=== PATIENT | female | born 1955 | race African-American/Black ===

== ENCOUNTER 2020-06-04 07:50 | Inpatient (IN) | payer MEDICAID ==
[~2020-06-04] VITALS: Ht 165.1 cm; Wt 51.3 kg
[~2020-06-04 07:50] MED LIST: BACL10TA PO; CARI-277 PO; DICLTAB53 PO; GABA300C10 PO; HYDR-4072 PO; MORP1TAB14 PO; NAP500T PO; SPIR25TA8 PO; WARF1TAB36 PO; WARF5TAB71 PO
[2020-06-04 09:37] LABS: Basophils # (auto) 0 10 ^3/uL (0-0.2); Eosinophils # (auto) 0 10 ^3/uL (0-0.8); Eosinophils % (auto) 0.6 % (0.0-7.0); Nucleated Red Blood Cells % 0.1 %; White Blood Cell 6.6 10^3/uL (4.4-10.8)
[2020-06-04 09:39] LABS: Basophils % (auto) 0.2 % (0.0-2.0); Hematocrit 30.7 % (36.0-46.0); Hemoglobin 9.5 g/dL (12.2-16.2); Lymphocytes # (auto) 1.1 10 ^3/uL (0.4-5.4); Lymphocytes % (auto) 16.9 % (10.0-50.0); Mean Corpuscular Hemoglobin 30.1 pg (28.0-32.0); Mean Corpuscular Volume 97.2 fL (80.0-100.0); Monocytes # (auto) 0.2 10 ^3/uL (0-1.3); Monocytes % (auto) 3.6 % (0.0-12.0); Neutrophils # (auto) 5.2 10 ^3/uL (1.6-8.6); Neutrophils % (auto) 78.7 % (37.0-80.0); Platelet Count (auto) 229 10^3/uL (140-450); Red Blood Cells 3.15 10^6/uL (4.0-5.20); Red Cell Distribution Width 16.7 % (11.8-14.3)
[2020-06-04 09:57] LABS: Alanine Aminotransferase 14 U/L (13-56); Anion Gap 5 (5-15); Aspartate Aminotransferase 19 U/L (15-37); BUN/Creatinine Ratio 12.1; Blood Alcohol < 3.0 mg/dL (0-5); Blood Urea Nitrogen 21 mg/dL (7-18); Calcium 8.6 mg/dL (8.5-10.1); Carbon Dioxide 24 mmol/L (21-32); Chloride 107 mmol/L (98-107); GFR African American 38 mL/min; GFR Non-African American 32 mL/min; Glucose 94 mg/dL (74-106); Potassium 4.8 mmol/L (3.5-5.1); Salicylate 3.8 mg/dL (2.8-20.0); Sodium 136 mmol/L (136-145)
[2020-06-04 09:59] LABS: Acetaminophen < 2.0 ug/mL (10-30)
[2020-06-04 10:02] LABS: Alkaline Phosphatase 161 U/L (45-117); Bilirubin, Total 0.3 mg/dL (0.2-1.0); Total Protein 7.3 g/dL (6.4-8.2)
[2020-06-04 10:48] LABS: Urine Bacteria FEW /hpf (None Seen); Urine Blood 1+ /uL (Negative); Urine Mucus FEW (None Seen); Urine Specific Gravity 1.016 (1.001-1.035); Urine WBC 23 /hpf (0 - 5)
[2020-06-04 11:14] LABS: Alcohol, Urine < 3.0 mg/dL (0-10); Amphetamine Screen, Urine NEGATIVE (NEGATIVE); Barbiturate Scree,Urine NEGATIVE (NEGATIVE); Benzodiazephine Screen, Urine NEGATIVE (NEGATIVE); Cannabinoid Screen, Urine NEGATIVE (NEGATIVE); Cocaine Screen, Urine NEGATIVE (NEGATIVE); Opiate Scree,Urine POSITIVE (NEGATIVE); Phencyclidine Screen, Urine NEGATIVE (NEGATIVE)
[2020-06-04] MEDS ORDERED: MORPHINE SULF INJ 2 MG/ML SYRINGE 1ML IV PRN (11:45)
[2020-06-04] MEDS ORDERED: SODIUM CHLORIDE 0.9% 1,000 ML IV ONE (11:45)
[2020-06-04] MEDS ORDERED: NITROGLYCERIN 0.4 MG SL TAB SL PRN (11:45)
[2020-06-04] MEDS ORDERED: FUROSEMIDE 40 MG TAB PO ONE (11:45)
[2020-06-04] MEDS ORDERED: NALOXONE HCL 0.4 MG/ML VIAL IV ONE (11:45)
[2020-06-04] MEDS ORDERED: GABAPENTIN 300 MG CAP PO SCH (12:00)
[2020-06-04] MEDS: PANTOPRAZOLE 40 MG/10 ML VIAL INJ IV SCH (14:30)
[2020-06-04] MEDS: cefTRIAXone 1GM/50ML D5W 50 ML IV SCH (14:45)
[2020-06-04] MEDS: RIVAROXABAN 20 MG TAB PO SCH (19:00)
[2020-06-04] MEDS ORDERED: SPIR50TA5 PO (19:32)
[2020-06-04] MEDS ORDERED: RIVA20TA PO (19:34)
[2020-06-04] MEDS ORDERED: MORP30TA5 PO (19:38)
[2020-06-04] MEDS ORDERED: GABA400C11 PO (19:41)
[2020-06-04] MEDS: GABAPENTIN 300 MG CAP PO SCH (21:46)
[2020-06-05] VITALS (8 sets, daily range): BP systolic 120–146; BP diastolic 54–75
[2020-06-05] MEDS ORDERED: PNEUMOCOCCAL VACC POLYS 25 MCG/0.5 ML VIAL IM ONE (00:45)
[2020-06-05] MEDS ORDERED: INFLUENZA QUAD 2020-2021 0.5 ML SYRG IM ONE (00:45)
[2020-06-05] MEDS: GABAPENTIN 300 MG CAP PO SCH ×2 (05:44→14:59)
[2020-06-05] MEDS: cefTRIAXone 1GM/50ML D5W 50 ML IV SCH (08:20)
[2020-06-05] MEDS: PANTOPRAZOLE 40 MG/10 ML VIAL INJ IV SCH (09:12)
[2020-06-05] MEDS: HYDROcodone-ACET 5/325MG TAB PO PRN ×2 (09:12→17:30)
[2020-06-05] MEDS ORDERED: SPIRONOLACTONE 25 MG TAB PO SCH (10:00)
[2020-06-05 10:25] LABS: Basophils # (auto) 0 10 ^3/uL (0-0.2); Basophils % (auto) 0.6 % (0.0-2.0); Eosinophils # (auto) 0 10 ^3/uL (0-0.8); Eosinophils % (auto) 0.3 % (0.0-7.0); Hematocrit 31.1 % (36.0-46.0); Hemoglobin 9.8 g/dL (12.2-16.2); Lymphocytes # (auto) 1.1 10 ^3/uL (0.4-5.4); Lymphocytes % (auto) 23.5 % (10.0-50.0); Mean Corpuscular Hemoglobin 30.4 pg (28.0-32.0); Mean Corpuscular Hgb Conc. 31.4 g/dL (32.0-36.0); Mean Corpuscular Volume 96.5 fL (80.0-100.0); Monocytes # (auto) 0.3 10 ^3/uL (0-1.3); Monocytes % (auto) 5.8 % (0.0-12.0); Neutrophils # (auto) 3.3 10 ^3/uL (1.6-8.6); Neutrophils % (auto) 69.8 % (37.0-80.0); Platelet Count (auto) 247 10^3/uL (140-450); Red Blood Cells 3.22 10^6/uL (4.0-5.20); Red Cell Distribution Width 16.5 % (11.8-14.3); White Blood Cell 4.8 10^3/uL (4.4-10.8)
[2020-06-05 10:43] LABS: BUN/Creatinine Ratio 15.1; Calcium 8.8 mg/dL (8.5-10.1); Potassium 4.4 mmol/L (3.5-5.1)
[2020-06-05] MEDS: RIVAROXABAN 20 MG TAB PO SCH (18:00)
== END 2020-06-05 19:25 | disposition home or self-care (01) | DRG 812 ==
LOC: EDBD 07:50 → ER 07:50 → TELE 07:51 → TELE-WESTW 23:17
PROVIDERS: ADMIT Nurse Practitioner Acute Care; ATTEND Internal Medicine
DX: T39.1X1A Poisoning by 4-Aminophenol derivatives, accidental (unintentional), initial encounter (principal); T39.311A Poisoning by propionic acid derivatives, accidental (unintentional), initial encounter; T42.6X1A Poisoning by other antiepileptic and sedative-hypnotic drugs, accidental (unintentional), initial encounter; N17.0 Acute kidney failure with tubular necrosis; N18.30 Chronic kidney disease, stage 3 unspecified; Z68.1 Body mass index [BMI] 19.9 or less, adult; D64.9 Anemia, unspecified; G62.9 Polyneuropathy, unspecified; G89.29 Other chronic pain; G92 Toxic encephalopathy; M54.5 Low back pain; I13.0 Hypertensive heart and chronic kidney disease with heart failure and stage 1 through stage 4 chronic kidney disease, or unspecified chronic kidney disease; I50.9 Heart failure, unspecified; Z86.711 Personal history of pulmonary embolism; Z23 Encounter for immunization; Z86.718 Personal history of other venous thrombosis and embolism; Z79.01 Long term (current) use of anticoagulants; Z79.899 Other long term (current) drug therapy; Y92.89 Other specified places as the place of occurrence of the external cause; Z79.891 Long term (current) use of opiate analgesic; E44.1 Mild protein-calorie malnutrition; I70.0 Atherosclerosis of aorta
CPT/HCPCS: 36415; 70450; 71045; 74176; 80048; 80053; 80307; 80320; 80329; 81001; 84484; 85025; 87086; 93005; 96361; 96365; 96366; 96375; 99291; C9113; G0378; J0696

== ENCOUNTER 2020-06-07 15:50 | Inpatient (IN) | payer MEDICAID ==
[~2020-06-07] VITALS: Ht 165.1 cm; Wt 56.3 kg
[~2020-06-07 15:50] MED LIST changes: -CARI-277 PO; -DICLTAB53 PO; -GABA300C10 PO; +GABA400C11 PO; -MORP1TAB14 PO; +MORP30TA5 PO; +RIVA20TA PO; -SPIR25TA8 PO; +SPIR50TA5 PO; -WARF1TAB36 PO; -WARF5TAB71 PO
[2020-06-07 17:01] LABS: Basophils # (auto) 0.1 10 ^3/uL (0-0.2); Eosinophils # (auto) 0 10 ^3/uL (0-0.8); Hemoglobin 8.9 g/dL (12.2-16.2); Lymphocytes # (auto) 1.2 10 ^3/uL (0.4-5.4)
[2020-06-07 17:04] LABS: Basophils % (auto) 1.1 % (0.0-2.0); Eosinophils % (auto) 0.6 % (0.0-7.0); Hematocrit 28.9 % (36.0-46.0); Lymphocytes % (auto) 17.5 % (10.0-50.0); Mean Corpuscular Hemoglobin 29.7 pg (28.0-32.0); Mean Corpuscular Hgb Conc. 30.7 g/dL (32.0-36.0); Mean Corpuscular Volume 96.9 fL (80.0-100.0); Monocytes # (auto) 0.4 10 ^3/uL (0-1.3); Monocytes % (auto) 5.4 % (0.0-12.0); Neutrophils # (auto) 4.9 10 ^3/uL (1.6-8.6); Neutrophils % (auto) 75.4 % (37.0-80.0); Nucleated Red Blood Cells % 0.1 %; Platelet Count (auto) 227 10^3/uL (140-450); Red Blood Cells 2.98 10^6/uL (4.0-5.20); Red Cell Distribution Width 16.3 % (11.8-14.3); White Blood Cell 6.6 10^3/uL (4.4-10.8)
[2020-06-07] MEDS ORDERED: SODIUM CHLORIDE 0.9% 1,000 ML IV ONE ×2 (17:15)
[2020-06-07] MEDS ORDERED: NALOXONE HCL 1MG/ML 2ML SYRINGE IV ONE (17:15)
[2020-06-07 17:22] LABS: Acetaminophen < 2.0 ug/mL (10-30); Salicylate 3.7 mg/dL (2.8-20.0)
[2020-06-07 17:23] LABS: Alanine Aminotransferase 13 U/L (13-56); Albumin 2.8 g/dL (3.4-5.0); Anion Gap 4 (5-15); Aspartate Aminotransferase 20 U/L (15-37); BUN/Creatinine Ratio 10.6; Blood Alcohol < 3.0 mg/dL (0-5); Blood Urea Nitrogen 21 mg/dL (7-18); Calcium 8.1 mg/dL (8.5-10.1); Carbon Dioxide 26 mmol/L (21-32); Chloride 105 mmol/L (98-107); GFR African American 33 mL/min; GFR Non-African American 27 mL/min; Glucose 93 mg/dL (74-106); Magnesium 1.8 mg/dL (1.6-2.6); Potassium 4.5 mmol/L (3.5-5.1); Sodium 135 mmol/L (136-145)
[2020-06-07 17:25] LABS: Alkaline Phosphatase 145 U/L (45-117); Bilirubin, Total 0.4 mg/dL (0.2-1.0)
[2020-06-07] MEDS ORDERED: THIAMINE 100mg/ml INJ (200mg/2ml VIAL) IV ONE (18:30)
[2020-06-07] MEDS ORDERED: NITROGLYCERIN 0.4 MG SL TAB SL PRN ×2 (18:30→21:30)
[2020-06-07] MEDS ORDERED: LACTATED RINGER'S 1,000 ML IV ONE (18:30)
[2020-06-07] MEDS ORDERED: D5W/SOD CHLO 0.9% 1,000 ML IV SCH ×2 (18:30→21:15)
[2020-06-07] MEDS ORDERED: MORPHINE SULF INJ 2 MG/ML SYRINGE 1ML IV PRN ×3 (18:30→21:30)
[2020-06-07 21:23] LABS: Urine Bacteria FEW /hpf (None Seen); Urine Blood 1+ /uL (Negative); Urine Specific Gravity 1.012 (1.001-1.035); Urine WBC 1 /hpf (0 - 5)
[2020-06-07] MEDS ORDERED: ALUM & MAG HYDROX-SIMETH LIQ(MAALOX) 30 ML PO PRN (21:30)
[2020-06-07] MEDS ORDERED: BACLOFEN 10 MG TAB PO PRN (21:30)
[2020-06-07] MEDS ORDERED: LORazepam 0.5 MG TAB PO PRN (21:30)
[2020-06-07] MEDS ORDERED: DOCUSATE SOD 100 MG CAP PO PRN (21:30)
[2020-06-07] MEDS ORDERED: ONDANSETRON HCL 4 MG/2 ML VIAL IV PRN (21:30)
[2020-06-07] MEDS ORDERED: ACETAMINOPHEN 325 MG TAB PO PRN (21:30)
[2020-06-07 21:34] LABS: Alcohol, Urine < 3.0 mg/dL (0-10); Amphetamine Screen, Urine NEGATIVE (NEGATIVE); Barbiturate Scree,Urine NEGATIVE (NEGATIVE); Benzodiazephine Screen, Urine NEGATIVE (NEGATIVE); Cannabinoid Screen, Urine NEGATIVE (NEGATIVE); Cocaine Screen, Urine NEGATIVE (NEGATIVE); Opiate Scree,Urine POSITIVE (NEGATIVE); Phencyclidine Screen, Urine NEGATIVE (NEGATIVE)
[2020-06-08] MEDS: GABAPENTIN 300 MG CAP PO SCH ×4 (00:30→22:17)
[2020-06-08 07:05] LABS: Potassium 4.8 mmol/L (3.5-5.1)
[2020-06-08 07:06] LABS: BUN/Creatinine Ratio 11.9; Calcium 8.1 mg/dL (8.5-10.1)
[2020-06-08 07:12] LABS: Hematocrit 31.6 % (36.0-46.0); Hemoglobin 9.6 g/dL (12.2-16.2); Mean Corpuscular Hemoglobin 29.4 pg (28.0-32.0); Mean Corpuscular Hgb Conc. 30.3 g/dL (32.0-36.0); Mean Corpuscular Volume 96.8 fL (80.0-100.0); Platelet Count (auto) 178 10^3/uL (140-450); Red Blood Cells 3.26 10^6/uL (4.0-5.20); Red Cell Distribution Width 16.4 % (11.8-14.3); White Blood Cell 6.8 10^3/uL (4.4-10.8)
[2020-06-08 07:14] LABS: Band Neutrophils % (manual) 0; Basophils % (manual) 0 (0.0-2.0); Blast Cells 0; Eosinophils % (manual) 0 (0-7); Metamyelocytes % 0; Myelocytes % 0; Promyelocytes % 0; Reactive Lymphocytes 0
--- NOTE | 2020-06-08 08:13 | NUR ---
Telemetry admit from ER PAM BANDA admitted to Telemetry unit after SBAR received. Patient oriented to Kathleen rios RN, unit, room, bed, and unit policies regarding patient care and visiting hours. Patient now on continuous telemetry monitoring, tele box # 45. Patient placed on bed side oxygen 3 LPM NC and weighed by bed scale. Instructed patient on POC, fall precautions and to call for assistance as needed. Patient verbalized understanding. Fall precautions in place with call light within reach; staff member at bedside for safety.
[2020-06-08 09:52] VITALS: BP 143/73
[2020-06-08] MEDS ORDERED: PNEUMOCOCCAL VACC POLYS 25 MCG/0.5 ML VIAL IM ONE (10:15)
[2020-06-08] MEDS: CALCIUM W/VIT D (600MG/400IU) TAB PO SCH ×2 (10:39→17:54)
[2020-06-08] MEDS: SPIRONOLACTONE 25 MG TAB PO SCH (10:39)
--- NOTE | 2020-06-08 11:11 | NUR ---
Spouse called for an update Patient's spouse called for an update. No password on account. Phone call transferred to patients bedside phone.
--- NOTE | 2020-06-08 11:16 | NUR ---
Password created by patient. YUNIEL Almonte
--- NOTE | 2020-06-08 11:49 | NUR ---
RE: Ambulation Patient ambulated to restroom with standby assistance provided by staff member. Patient remained on supplemental oxygen 3 LPM NC. Patient returned to bed with no complications noted. Call light within reach. No distress noted.
[2020-06-08 12:11] LABS: Lymphocytes % (manual) 30 (10.0-50.0); Monocytes % (manual) 7 (0-12)
[2020-06-08 13:00] VITALS: BP 147/65
[2020-06-08] MEDS: HYDROcodone-ACET 5/325MG TAB PO PRN ×2 (16:02→22:18)
[2020-06-08 17:00] VITALS: BP 126/78
[2020-06-08] MEDS ORDERED: RIVAROXABAN 20 MG TAB PO SCH (18:00)
--- NOTE | 2020-06-08 18:50 | NUR ---
closing note Pt resting in bed with no s/s of distress, SOB, or pain. Fall precautions in place and call light within reach.
--- NOTE | 2020-06-08 19:07 | NUR ---
Care endorsed to KHURRAM Sullivan.
--- NOTE | 2020-06-08 19:40 | NUR ---
Opening Shift Note Assumed care of patient, awake and alert. A&Ox4. Patient dangling on the side of the bed. No S/S of distress/SOB or pain. Safety measures maintained by keeping the bed locked in lowest position, 2 side rails up, personal items and call light within reach. Sitter at bedside. Instructed on POC and to call for assist PRN, will continue to monitor for changes Q1hr and PRN.
[2020-06-08 21:58] VITALS: BP 139/81
[2020-06-09] MEDS: HYDROcodone-ACET 5/325MG TAB PO PRN ×3 (02:23→10:52)
[2020-06-09 05:00] VITALS: BP 160/90
[2020-06-09] MEDS: GABAPENTIN 300 MG CAP PO SCH ×2 (05:57→14:00)
[2020-06-09 06:42] VITALS: BP 155/78
--- NOTE | 2020-06-09 08:00 | NUR ---
Morning note patient resting in bed with even and unlabored respirations on room air, no distress noted. Instructed patient on POC, fall precautions and to call for assistance as needed. Fall precautions in place with call light within reach.
[2020-06-09 09:00] VITALS: BP 163/90
[2020-06-09] MEDS: SPIRONOLACTONE 25 MG TAB PO SCH (09:11)
[2020-06-09] MEDS: CALCIUM W/VIT D (600MG/400IU) TAB PO SCH (09:12)
[2020-06-09 13:00] VITALS: BP 154/84
--- NOTE | 2020-06-09 14:00 | NUR ---
MD was at bedside - Dr. Johnna REID notified of pulse ox 88-89% on room air after ambulation. MD verbalized understanding.
--- NOTE | 2020-06-09 15:18 | NUR ---
Discharge Discharge education and paperwork provided to the patient per MD order. Patient instructed to contact PCP to schedule a follow up appointment. Patient verbalized understanding to all information provided. Respirations even and unlabored on room air. IV removed with aseptic technique, catheter intact. Dressing applied. patient tolerated well, no trauma to site. Telemonitor removed and returned. Patient reports having all personal belongings. Patient instructed to notify staff once transportation arrives to hospital. Patient verbalized understanding.
--- NOTE | 2020-06-09 15:37 | NUR ---
Transportation arrived to hospital Patient transferred to private vehicle via wheelchair, accompanied by staff member. No distress noted.
--- NOTE | 2020-06-10 09:20 | NUR ---
I did not receive a page regarding the social service consult for this patient.
== END 2020-06-09 15:35 | disposition home or self-care (01) | DRG 812 ==
LOC: ER 15:50 → EDBD 15:50 → TELE 15:51 → TELE-CENTR 06-08 08:26
PROVIDERS: ADMIT Hospitalist; ATTEND Hospitalist
DX: T40.2X1A Poisoning by other opioids, accidental (unintentional), initial encounter (principal); G92 Toxic encephalopathy; E86.0 Dehydration; N18.30 Chronic kidney disease, stage 3 unspecified; N17.0 Acute kidney failure with tubular necrosis; E43 Unspecified severe protein-calorie malnutrition; M19.90 Unspecified osteoarthritis, unspecified site; E87.1 Hypo-osmolality and hyponatremia; D63.1 Anemia in chronic kidney disease; G89.4 Chronic pain syndrome; I12.9 Hypertensive chronic kidney disease with stage 1 through stage 4 chronic kidney disease, or unspecified chronic kidney disease; J96.20 Acute and chronic respiratory failure, unspecified whether with hypoxia or hypercapnia; Z79.01 Long term (current) use of anticoagulants; Z79.899 Other long term (current) drug therapy; Z86.718 Personal history of other venous thrombosis and embolism; M54.5 Low back pain; Z82.5 Family history of asthma and other chronic lower respiratory diseases; I27.82 Chronic pulmonary embolism; F11.20 Opioid dependence, uncomplicated; J96.90 Respiratory failure, unspecified, unspecified whether with hypoxia or hypercapnia
CPT/HCPCS: 36415; 70450; 71045; 80048; 80053; 80307; 80320; 80329; 81001; 82962; 83735; 84484; 85007; 85025; 85027; 87081; 87086; 96361; 96374; 99291; G0378

== ENCOUNTER 2020-09-05 17:22 | Inpatient (IN) | payer MEDICAID ==
[~2020-09-05] VITALS: Ht 165.1 cm; Wt 55.7 kg
[2020-09-05 22:11] LABS: Basophils # (auto) 0 10 ^3/uL (0-0.2); Eosinophils # (auto) 0 10 ^3/uL (0-0.8); Nucleated Red Blood Cells % 1.8 %
[2020-09-05 22:13] LABS: Basophils % (auto) 0.4 % (0.0-2.0); Eosinophils % (auto) 0.1 % (0.0-7.0); Hematocrit 17.2 % (36.0-46.0); Lymphocytes # (auto) 1.1 10 ^3/uL (0.4-5.4); Lymphocytes % (auto) 16.5 % (10.0-50.0); Mean Corpuscular Hemoglobin 25.2 pg (28.0-32.0); Mean Corpuscular Hgb Conc. 29.1 g/dL (32.0-36.0); Mean Corpuscular Volume 86.5 fL (80.0-100.0); Monocytes # (auto) 0.2 10 ^3/uL (0-1.3); Monocytes % (auto) 3.5 % (0.0-12.0); Neutrophils # (auto) 5.5 10 ^3/uL (1.6-8.6); Neutrophils % (auto) 79.5 % (37.0-80.0); Platelet Count (auto) 187 10^3/uL (140-450); Red Blood Cells 1.99 10^6/uL (4.0-5.20); Red Cell Distribution Width 19.2 % (11.8-14.3); White Blood Cell 6.9 10^3/uL (4.4-10.8)
[2020-09-05 22:32] LABS: Potassium 3.5 mmol/L (3.5-5.1)
[2020-09-05 22:38] LABS: Albumin 2.1 g/dL (3.4-5.0); BUN/Creatinine Ratio 8.2; Bilirubin, Total 0.4 mg/dL (0.2-1.0); Calcium 6.8 mg/dL (8.5-10.1); Magnesium 1.6 mg/dL (1.6-2.6); Total Protein 5.7 g/dL (6.4-8.2)
[2020-09-06] VITALS (8 sets, daily range): BP systolic 118–145; BP diastolic 58–76
[2020-09-06] MEDS ORDERED: DOCUSATE SOD 100 MG CAP PO PRN (02:00)
[2020-09-06] MEDS ORDERED: MORPHINE SULF INJ 2 MG/ML SYRINGE 1ML IV PRN (02:00)
[2020-09-06] MEDS ORDERED: NITROGLYCERIN 0.4 MG SL TAB SL PRN (02:00)
[2020-09-06] MEDS ORDERED: ACETAMINOPHEN 325 MG TAB PO PRN ×2 (02:00)
[2020-09-06] MEDS ORDERED: ONDANSETRON HCL 4 MG/2 ML VIAL IV PRN (02:00)
[2020-09-06 02:58] LABS: % Iron Saturation 8.5 % (15-50)
[2020-09-06 04:54] LABS: Folate (Folic Acid) 4.56 ng/mL (5.38-24)
[2020-09-06] MEDS: SPIRONOLACTONE 25 MG TAB PO SCH (08:47)
[2020-09-06] MEDS: ASCORBIC ACID 500 MG TAB PO SCH ×2 (08:47→21:16)
[2020-09-06] MEDS: MULTIPLE VITAMIN TAB PO SCH (08:47)
[2020-09-06] MEDS ORDERED: SODIUM FERR GLUC 62.5MG/5ML 125 MG in SODIUM CHL 0.9% 100 ML IV SCH (10:00)
[2020-09-06] MEDS ORDERED: FAMOTIDINE (10MG/ML) 2ML VL IV SCH ×2 (10:00→22:00)
[2020-09-06] MEDS ORDERED: SODIUM CHLORIDE 0.9% 1,000 ML IV ONE (12:30)
[2020-09-06] MEDS ORDERED: FOLIC ACID 1 MG in D5W 5% 50 ML INJ ONE (12:30)
[2020-09-06] MEDS ORDERED: FUROSEMIDE 20 MG/2 ML VIAL IV ONE (12:30)
[2020-09-06] MEDS ORDERED: MAGNESIUM SULFATE 1GM/100ML 100 ML IV ONE (12:45)
[2020-09-06 13:34] LABS: Basophils # (auto) 0 10 ^3/uL (0-0.2); Basophils % (auto) 0.4 % (0.0-2.0); Eosinophils # (auto) 0.1 10 ^3/uL (0-0.8); Eosinophils % (auto) 0.9 % (0.0-7.0); Hematocrit 21.4 % (36.0-46.0); Lymphocytes # (auto) 1.6 10 ^3/uL (0.4-5.4); Lymphocytes % (auto) 26.9 % (10.0-50.0); Mean Corpuscular Hemoglobin 24.7 pg (28.0-32.0); Mean Corpuscular Hgb Conc. 28.9 g/dL (32.0-36.0); Mean Corpuscular Volume 85.5 fL (80.0-100.0); Monocytes # (auto) 0.3 10 ^3/uL (0-1.3); Monocytes % (auto) 4.7 % (0.0-12.0); Neutrophils % (auto) 67.1 % (37.0-80.0); Nucleated Red Blood Cells % 0.2 %; Platelet Count (auto) 244 10^3/uL (140-450); Red Cell Distribution Width 19.2 % (11.8-14.3)
[2020-09-06 13:36] LABS: Hemoglobin 6.2 g/dL (12.2-16.2)
[2020-09-06 13:57] LABS: Albumin 2.6 g/dL (3.4-5.0); Calcium 8.1 mg/dL (8.5-10.1)
[2020-09-06 14:00] LABS: Bilirubin, Total 0.2 mg/dL (0.2-1.0); Phosphorus 3.7 mg/dL (2.5-4.90)
[2020-09-06 17:03] LABS: Urine Bacteria FEW /hpf (None Seen); Urine Blood 3+ /uL (Negative); Urine Mucus FEW (None Seen); Urine Specific Gravity 1.018 (1.001-1.035); Urine WBC 17 /hpf (0 - 5)
[2020-09-06 17:07] LABS: Alcohol, Urine < 3.0 mg/dL (0-10); Amphetamine Screen, Urine NEGATIVE (NEGATIVE); Barbiturate Scree,Urine NEGATIVE (NEGATIVE); Benzodiazephine Screen, Urine NEGATIVE (NEGATIVE); Cannabinoid Screen, Urine NEGATIVE (NEGATIVE); Cocaine Screen, Urine NEGATIVE (NEGATIVE); Opiate Scree,Urine POSITIVE (NEGATIVE); Phencyclidine Screen, Urine NEGATIVE (NEGATIVE)
[2020-09-06] MEDS: FAMOTIDINE INJECTION 40 MG in SODIUM CHL 0.9% 100 ML IV SCH (21:15)
[2020-09-06] MEDS: BACLOFEN 10 MG TAB PO SCH (22:42)
[2020-09-06] MEDS: GABAPENTIN 400 MG CAP PO SCH (22:42)
[2020-09-06] MEDS: HYDROcodone-ACET 10/325MG TAB PO PRN (22:43)
[2020-09-07 05:00] VITALS: BP 149/87
[2020-09-07 06:23] LABS: Eosinophils # (auto) 0.1 10 ^3/uL (0-0.8); Monocytes # (auto) 0.5 10 ^3/uL (0-1.3)
[2020-09-07 06:26] LABS: Basophils # (auto) 0.1 10 ^3/uL (0-0.2); Basophils % (auto) 1.1 % (0.0-2.0); Eosinophils % (auto) 1.2 % (0.0-7.0); Hematocrit 25.9 % (36.0-46.0); Hemoglobin 8.7 g/dL (12.2-16.2); Lymphocytes # (auto) 1.7 10 ^3/uL (0.4-5.4); Lymphocytes % (auto) 21.9 % (10.0-50.0); Mean Corpuscular Hemoglobin 28.4 pg (28.0-32.0); Mean Corpuscular Hgb Conc. 33.7 g/dL (32.0-36.0); Mean Corpuscular Volume 84.2 fL (80.0-100.0); Monocytes % (auto) 6.7 % (0.0-12.0); Neutrophils # (auto) 5.5 10 ^3/uL (1.6-8.6); Neutrophils % (auto) 69.1 % (37.0-80.0); Nucleated Red Blood Cells % 0.2 %; Platelet Count (auto) 192 10^3/uL (140-450); Red Blood Cells 3.08 10^6/uL (4.0-5.20); Red Cell Distribution Width 18.1 % (11.8-14.3); White Blood Cell 7.9 10^3/uL (4.4-10.8)
[2020-09-07 06:42] LABS: Calcium 7.7 mg/dL (8.5-10.1)
[2020-09-07 06:48] LABS: Albumin 2.2 g/dL (3.4-5.0); BUN/Creatinine Ratio 14.5; Bilirubin, Total 0.2 mg/dL (0.2-1.0); Total Protein 6.1 g/dL (6.4-8.2)
[2020-09-07] MEDS: BACLOFEN 10 MG TAB PO SCH (06:53)
[2020-09-07] MEDS: GABAPENTIN 400 MG CAP PO SCH (06:53)
[2020-09-07] MEDS: HYDROcodone-ACET 10/325MG TAB PO PRN (06:54)
[2020-09-07 08:00] VITALS: BP 112/66
[2020-09-07] MEDS: ASCORBIC ACID 500 MG TAB PO SCH (09:50)
[2020-09-07] MEDS: SPIRONOLACTONE 25 MG TAB PO SCH (09:50)
[2020-09-07] MEDS: MULTIPLE VITAMIN TAB PO SCH (09:50)
[2020-09-07] MEDS: FOLIC ACID 1 MG in D5W 5% 50 ML INJ SCH ×2 (10:00→12:08)
[2020-09-07] MEDS: FAMOTIDINE INJECTION 40 MG in SODIUM CHL 0.9% 100 ML IV SCH (10:00)
== END 2020-09-07 14:05 | disposition left against medical advice (07) | DRG 663 ==
LOC: EDUNIT# 17:22 → EDBD 17:22 → ER 17:22 → TELE 09-06 01:54 → TELE-CENTR 09-06 17:10
PROVIDERS: ADMIT Nurse Practitioner Family; ATTEND Internal Medicine
PROC: 30233N1 Transfusion of Nonautologous Red Blood Cells into Peripheral Vein, Percutaneous Approach (ICD-10-PCS; principal; 2020-09-06)
DX: D50.9 Iron deficiency anemia, unspecified (principal); J96.01 Acute respiratory failure with hypoxia; G92 Toxic encephalopathy; N17.9 Acute kidney failure, unspecified; E87.0 Hyperosmolality and hypernatremia; F17.210 Nicotine dependence, cigarettes, uncomplicated; J44.9 Chronic obstructive pulmonary disease, unspecified; Z53.29 Procedure and treatment not carried out because of patient's decision for other reasons; N18.9 Chronic kidney disease, unspecified; G89.29 Other chronic pain; G62.9 Polyneuropathy, unspecified; M54.5 Low back pain; I50.22 Chronic systolic (congestive) heart failure; I13.0 Hypertensive heart and chronic kidney disease with heart failure and stage 1 through stage 4 chronic kidney disease, or unspecified chronic kidney disease; Z79.01 Long term (current) use of anticoagulants; Z79.891 Long term (current) use of opiate analgesic; Z82.5 Family history of asthma and other chronic lower respiratory diseases; Z86.718 Personal history of other venous thrombosis and embolism; Z98.1 Arthrodesis status; Z20.822 Contact with and (suspected) exposure to COVID-19
CPT/HCPCS: 36415; 36430; 70450; 71045; 80053; 80307; 81001; 82607; 82746; 83010; 83036; 83540; 83550; 83615; 83735; 83880; 84100; 84443; 85025; 85045; 86850; 86860; 86870; 86880; 86900; 86901; 86902; 86905; 86906; 86922; 86971; 87426; 93306; 96365; 96367; 96375; G0378; J3490; J7060